=== PATIENT | female | born 1995 | race Caucasian/White ===

== ENCOUNTER 2018-01-27 19:01 | Emergency (ER) | payer SELFPAY ==
[~2018-01-27] VITALS: Ht 165.1 cm; Wt 61.2 kg
[2018-01-27] MEDS ORDERED: VIBRAMYCIN100 MG PO (20:06)
[2018-01-27] MEDS ORDERED: RETIN-A20 G1 T (20:07)
== END 2018-01-27 20:30 | disposition home or self-care (01) ==
LOC: ED 19:01
DX: L70.0 Acne vulgaris (principal)